=== PATIENT | male | born 1950 | race Caucasian/White ===

== ENCOUNTER 2019-03-28 16:32 | Emergency (ER) | payer BC ==
[2019-03-28 17:14] VITALS: BP 160/64; PULSE 80; TEMP 97.5; BMI 30.9
--- NOTE | 2019-03-28 17:21 | PDOC ---
History of Present Illness - General Chief Complaint: Respiratory Stated Complaint: COUGH Time Seen by Provider: 03/28/19 16:36 - History of Present Illness Initial Comments: Yohannes Valdez is a 68yo man with a PMH of HTN, hypothyroidism, alcohol abuse (reports elevated LFT's due to drinking) who presents with multiple complaints for the past week. He states that he has had generalized weakness, excessive thirst, poor appetite, and fatigue over the past week. He says that he feels this started with a cold 1.5 weeks ago, as he had a cough. 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 Mr Valdez says he is afraid that he has low potassium as his brother has had this in the past. He denies any chest pain, SOB , vomiting, change in bowel habits, but he does endorse frequent nocturia recently. He made an appointment with his PMD but states that he felt he should get checked out sooner in case something was wrong. Past History - Past Medical History Allergies/Adverse Reactions: Allergies Allergy/AdvReac Type Severity Reaction Status Date / Time No Known Allergies Allergy Verified 03/28/19 16:53 Home Medications: Ambulatory Orders Levothyroxine PO DAILY 03/28/19 Lisinopril 30 mg PO DAILY 03/28/19 COPD: No HTN: Yes Liver Disease: Yes (ALCOHOL RELATED) - Suicide/Smoking/Psychosocial Hx Smoking History: Never smoked Hx Alcohol Use: Yes Drug/Substance Use Hx: No Review of Systems - Review of Systems Comments:: General: No fevers, no chills, no weight, + poor appetite, no malaise HEENT: No changes in vision, no changes in hearing, no congestion, no sore throat CV:No chest pain, no palpitations, no LE edema Pulm: No SOB, + occasional cough, no wheezing GI: No nausea or vomiting, no change in bowel habits, no melena : No frequency, no urgency, no dysuria, +nocturia Musc: No back pain, no joint swelling, no recent injury Skin: No rash, no lesions, no erythema Endo: + excessive thirst, no heat/cold intolerance Heme: No unusual bruising or bleeding, no swollen glands Neuro: No syncope, no numbness/tingling, no focal weakness Vasc: No claudication Psych: No recent change in mood, no SI or HI *Physical Exam - Vital Signs Last Vital Signs Temp Pulse Resp BP Pulse Ox 97.5 F L 80 16 160/64 98 03/28/19 16:34 03/28/19 16:34 03/28/19 16:34 03/28/19 16:34 03/28/19 16:34 - Physical Exam Comments: General: Comfortable, no acute distress HEENT: PERRL, EOMI, MMM, voice normal, normal neck ROM Cards: RRR, no murmur appreciated Pulm: Comfortable on room air, clear to auscultation bilaterally Abd: Soft, nontender, nondistended : No CVA tenderness Ext: Atraumatic. No LE edema. ROM intact. WWP Skin: Normal color, no rashes or lesions Neuro: A&Ox3, CN grossly intact, normal speech, motor/sensory grossly intact and symmetric Psych: Mood appropriate to situation ED Treatment Course - LABORATORY CBC & Chemistry Diagram: 03/28/19 17:50 03/28/19 17:50 Medical Decision Making - Medical Decision Making 03/28/19 17:21 Yohannes Valdez is a 68yo man with a PMH of HTN, hypothyroidism, alcohol abuse (reports elevated LFT's due to drinking) who presents with multiple complaints for the past week including generalized weakness, excessive thirst, poor appetite, and fatigue over the past week. - Weakness, dehydration could be secondary to alcoholism, undiagnosed diabetes, electrolyte deficiency - CBC, CMP, mag, phos, UA, UCx, EKG, CXR 03/28/19 18:22 - Pt endorsed nausea/vomiting to Dr Gracia. Lipase ordered. - Labs reviewed. Chemistry notable for sodium 128, mag 1.5 - Plan to admit for electrolyte abnormalities, likely secondary to alcohol abuse 03/28/19 18:56 - IV placed for 2l NS and IV mag - Discussed admission w/ pt. He states that he cannot stay overnight. Advised him to consider staying - Will recheck chemistry following electrolyte repletion. - To be signed out to overnight team for remainder of ED care. Discussed with Dr Gracia. Patricia Chiu PGY2 *DC/Admit/Observation/Transfer Diagnosis at time of Disposition: Hyponatremia, Hypomagnesemia - Discharge Dispostion Condition at time of disposition: Good - Referrals Referrals: Elizabeth Montaño [Non Staff, Medical] - - Patient Instructions Printed Discharge Instructions: Alcohol Use Disorder, DI for Hyponatremia Additional Instructions: you need to cut back you alcohol use. your sodium is low today at 128. this is likley related to your heavy alcohol use however can not know for sure without further testing. understand you are leaving against. medical advice. you should take magnesium 800 mg twice daily for 2 days. you should also follow up with you primary doctor call to schedule. return for any worsening nausea, vomiting confusion headache or any concerns. if you would like treatment for your alcohol use disorder you can seek detox at [facility]. - Post Discharge Activity
--- NOTE | 2019-03-28 18:04 | PDOC ---
Attending Attestation - Resident Resident Name: Patricia Chiu - ED Attending Attestation I have performed the following: I have examined & evaluated the patient, The case was reviewed & discussed with the resident, I agree w/resident's findings & plan, Exceptions are as noted - HPI HPI: 03/28/19 18:02 68 yo M with no pmhx here with co fatigue, and frequent urination. no ho dm no dysuria. no f/c no cp no sob. no other complaints. was concerned because a family member has low potassium so he wanted to get his potassium checked. no other complaints. does report daliy etoh use has two drinks at lunch and then 5 whiskeys each evening. has been told his liver test were elevated in the past. had two episodes of vomiting 3 days ago. no appetitis, and constant nausea. no abd pain. 03/28/19 18:45 - Physicial Exam PE: 03/28/19 18:03 awake alert lungs ctab heart rrr no mrg abd soft nt nd extwwp nuero alert oiented x 3 5/5 all four ext - Medical Decision Making 03/28/19 18:04 68 yo male h/o abnormal lft, heavy alcohol use ( 5 - 6 drink daily ) here with co polyuria polydypsia, nausea, and cough uri sxs. differential dehydration diabetes.hyponatremia, hypokalemia. uti, plan labs ua ekg . lipase pt educated regarding need to cut back alcohol use. 03/28/19 18:19 03/28/19 18:47 pt with hyponatremia, sxs likley related to etoh use. will hydrate with normal saline. admit. will attemp to contact dr mullins. number [phone]. [facility] doctor is no longer with practice. do not have the new number . 03/28/19 18:56 pt refusing to be admitted to hospital is agreaable to iv hydration and magnesium. will dc ama. aware of risk of hyponatremia including confusion, seizures and worsening condition. signed out to incoming attenindg pending iv hydration and magnesium repletion. to be dc ama. Heart Score/ECG Review #1 General ECG Interpretation: Sinus Rhythm, Normal Rate
[2019-03-28 18:33] LABS: ALBUMIN 2.8 g/dl (3.4-5.0); BILIRUBIN,TOTAL 7.6 mg/dl (0.2-1); CALCIUM 8.2 mg/dl (8.5-10); CREATININE 0.6 mg/dl (0.55-1.3); MAGNESIUM 1.5 mg/dL (1.8-2.4); POTASSIUM 3.9 mmol/L (3.5-5.1); TOT PROT 7.3 g/dl (6.4-8.2)
[2019-03-28] MEDS ORDERED: SODIUM CHLORIDE 0.9% 1000 ML INFUS.BAG IV ONE (18:42)
[2019-03-28 18:49] LABS: BASO % 0.5 % (0-2.0); EOS % 1.6 % (0-4.5); HEMATOCRIT 34.7 % (35.4-49); HEMOGLOBIN 11.9 GM/dl (11.7-16.9); LYMPH % 18.6 % (8-40); MCHC 34.5 g/dl (32.0-35.9); MEAN CELL VOLUME 110.2 fl (80-96); MEAN PLT VOLUME 10.1 fl (7.5-11.1); MONO % 11.9 % (3.8-10.2); NEUT % 67.4 % (42.8-82.8); PLATELET COUNT 71 K/MM3 (134-434); RBC 3.15 M/mm3 (4.00-5.60); RDW 14.5 % (11.9-15.9); WHITE BLOOD COUNT 6.2 K/mm3 (4.0-10.8)
[2019-03-28 18:50] LABS: ADD RBC MORPHOLOGY YES
[2019-03-28] MEDS ORDERED: MAGNESIUM SULF 50% (8.12 MEQ/2 ML-1 GM VIAL) ONE (19:09)
[2019-03-28 21:00] LABS: MACROCYTOSIS 2+; PLATELET ESTIMATE DECREASED
--- NOTE | 2019-03-29 09:38 | EKG ---
Test Reason : Blood Pressure : / mmHG Vent. Rate : 082 BPM Atrial Rate : 082 BPM P-R Int : 156 ms QRS Dur : 070 ms QT Int : 398 ms P-R-T Axes : 073 -06 046 degrees QTc Int : 464 ms NORMAL SINUS RHYTHM POSSIBLE LEFT ATRIAL ENLARGEMENT NONSPECIFIC ST ABNORMALITY ABNORMAL ECG NO PREVIOUS ECGS AVAILABLE Confirmed by Chico Alegria MD ([id number]) on 03/29/2019 9:38:26 AM Referred By: TIM YOON Confirmed By:Chico Alegria MD
== END 2019-03-28 20:06 | disposition left against medical advice (07) ==
LOC: FER 16:32
PROC: 3E033GC Introduction of Other Therapeutic Substance into Peripheral Vein, Percutaneous Approach (ICD-10-PCS; principal; 2019-03-28)
PROC: 3E0337Z Introduction of Electrolytic and Water Balance Substance into Peripheral Vein, Percutaneous Approach (ICD-10-PCS; 2019-03-28)
DX: E87.1 Hypo-osmolality and hyponatremia (principal); E83.42 Hypomagnesemia; I10 Essential (primary) hypertension; R63.0 Anorexia
CPT/HCPCS: 36415; 71046-TC-FY; 80053; 81003; 81015; 83690; 83735; 85025; 93005; 99283-25; J7030

== ENCOUNTER 2019-03-29 14:11 | Inpatient (IN) | payer BC, OTHER ==
--- NOTE | 2019-03-29 14:12 | PDOC ---
History of Present Illness - General Chief Complaint: Revisit, Lab Variance Stated Complaint: LOW NA Time Seen by Provider: 03/29/19 14:12 History Source: Patient Exam Limitations: No Limitations - History of Present Illness Initial Comments: 68 year old male with PMH HTN, HLD, ETOH abuse, hypothyroidism sent to ED by PCP for evaluation of hyponatremia. Pt reported he was seen at [facility] yesterday for generalized weakness, was diagnosed with low sodium and low magnesium, treated via IV, had improvement of his symptoms, then signed out AMA prior to admission. Pt reported he spoke with his PCP who advised he return to ED to be admitted to the hospital. Pt admitted to dry mouth. Pt stated he drinks 1 beer at 1500 daily, then 1/2 glass of wine with dinner, then 3 beers at night daily. Past History - Past Medical History Allergies/Adverse Reactions: Allergies Allergy/AdvReac Type Severity Reaction Status Date / Time No Known Allergies Allergy Verified 03/29/19 14:12 Home Medications: Ambulatory Orders Levothyroxine 100 mcg PO DAILY 03/28/19 Lisinopril 30 mg PO DAILY 03/28/19 COPD: No HTN: Yes Liver Disease: Yes (ALCOHOL RELATED) - Suicide/Smoking/Psychosocial Hx Smoking History: Never smoked Hx Alcohol Use: Yes Drug/Substance Use Hx: No Review of Systems - Review of Systems Able to Perform ROS?: Yes Comments:: General: denied fever, chills, generalized weakness. HEENT: admitted to dry mouth. denied sore throat, rhinorrhea, ear pain. Cardiovascular: denied chest pain, palpitations, syncope, diaphoresis. Respiratory: denied shortness of breath, cough, sputum production, hemoptysis. Gastrointestinal: denied abdominal pain, nausea, vomiting, diarrhea, constipation, blood in stool. Genitourinary: denied dysuria, increased urinary frequency, hematuria, urinary incontinence, flank pain. Back: denied back pain. Musculoskeletal: denied joint pain, muscle pain, joint swelling. Neurological: denied headache, dizziness, numbness, tingling, weakness. Integumentary: denied rash, laceration, abrasion. Hematologic/Lymphatic: denied bruising or bleeding. *Physical Exam - Physical Exam Comments: Constitutional: Well-nourished, Well-developed, appearing stated age. HEENT: head is normocephalic, atraumatic. EOMI. PERRLA. scleral icterus. Neck: supple. Full ROM. Cardiovascular: regular heart rhythm. no murmurs. no pericardial friction rub. Respiratory: clear to auscultation bilaterally. no crackles, rhonchi or wheezing. no stridor. Gastrointestinal: soft, nontender. normal bowel sounds. no rebound, guarding. hepatomegaly. Extremities: peripheral pulses intact. no lower extremity edema. Neurological: CN 2-12 grossly intact. moves all four extremities. Psych: awake, alert, oriented x3. follows commands. answers questions appropriately. ED Treatment Course - LABORATORY CBC & Chemistry Diagram: 03/29/19 14:17 03/29/19 14:17 Medical Decision Making - Medical Decision Making 03/29/19 14:59 68 year old male with above PMH sent to ED by PCP for evaluation of hyponatremia. Pt was seen in [facility] ED yesterday for generalized weakness, Na 128 Mag 1.5, treated with IV fluids and IV magnesium. Initial Vital Signs Temp Pulse Resp BP Pulse Ox 98.2 F 93 H 19 167/66 99 03/29/19 14:11 03/29/19 14:11 03/29/19 14:11 03/29/19 14:11 03/29/19 14:11 Afebrile. No tachycarida. No tachypnea. Hypertension. No hypoxia on room air. Labs ordered: CBC, CMP, mag, direct bili Imaging ordered: none Medications ordered: normal saline 1000 bolus EKG performed at 1551: rate 84, regular rhythm, normal axis, QTc 463, flipped T in anterior/septal leads, flat T in aVL, otherwise no acute ST changes. 03/29/19 15:40 CBC WBC 7.8 K/mm3 (4.0-10.8) 03/29/19 14:17 RBC 3.05 M/mm3 (4.00-5.60) L 03/29/19 14:17 Hgb 12.0 GM/dl (11.7-16.9) 03/29/19 14:17 Hct 33.7 % (35.4-49) L 03/29/19 14:17 MCV 110.6 fl (80-96) H 03/29/19 14:17 MCH 39.3 pg (25.7-33.7) H 03/29/19 14:17 MCHC 35.5 g/dl (32.0-35.9) 03/29/19 14:17 RDW 14.8 % (11.9-15.9) 03/29/19 14:17 Plt Count 75 K/MM3 (134-434) L 03/29/19 14:17 MPV 9.7 fl (7.5-11.1) 03/29/19 14:17 Absolute Neuts (auto) 4.9 K/mm3 03/29/19 14:17 Neutrophils % No Result Required. 03/29/19 14:17 Neutrophils % (Manual) 62.0 % (42.8-82.8) 03/29/19 14:17 Band Neutrophils % 3.0 % (0-10) 03/29/19 14:17 Lymphocytes % No Result Required. 03/29/19 14:17 Lymphocytes % (Manual) 21.0 % (8-40) 03/29/19 14:17 Monocytes % (Manual) 11 % (3.8-10.2) H 03/29/19 14:17 Eosinophils % (Manual) 3.0 % (0-4.5) 03/29/19 14:17 Hypochromia Few 03/29/19 14:17 Platelet Estimate Decreased 03/29/19 14:17 Macrocytosis 2+ 03/29/19 14:17 Elevated MCV - consistent with ETOH abuse. No anemia. No leukocytosis. 03/29/19 16:00 CMP Sodium 129 mmol/L (136-145) L 03/29/19 14:17 Potassium 3.8 mmol/L (3.5-5.1) 03/29/19 14:17 Chloride 101 mmol/L (98-107) 03/29/19 14:17 Carbon Dioxide 23 mmol/L (21-32) 03/29/19 14:17 Anion Gap 5 MMOL/L (8-16) L 03/29/19 14:17 BUN 8.0 mg/dl (7-18) 03/29/19 14:17 Creatinine 0.7 mg/dl (0.55-1.3) 03/29/19 14:17 Est GFR (CKD-EPI)AfAm 112.38 03/29/19 14:17 Est GFR (CKD-EPI)NonAf 96.97 03/29/19 14:17 Random Glucose 178 mg/dl (74-106) H 03/29/19 14:17 Calcium 7.7 mg/dl (8.5-10) L 03/29/19 14:17 Magnesium 1.8 mg/dL (1.8-2.4) 03/29/19 14:17 Total Bilirubin 7.6 mg/dl (0.2-1) H 03/29/19 14:17 Direct Bilirubin 4.1 mg/dL (0.0-0.2) H 03/29/19 14:17 AST 105 U/L (15-37) H 03/29/19 14:17 ALT 30 U/L (13-61) 03/29/19 14:17 Alkaline Phosphatase 250 U/L (45-117) H D 03/29/19 14:17 Total Protein 6.9 g/dl (6.4-8.2) 03/29/19 14:17 Albumin 2.7 g/dl (3.4-5.0) L 03/29/19 14:17 Lipase 234 U/L (73-393) 03/29/19 14:17 Hyponatremia. No JACK. Elevated AST. Elevated total and direct bilirubin. Lipase wnl. Pt and daughter informed of results and need for admission for hyponatremia correction. RUQ US ordered. 03/29/19 16:18 RUQ US report: Name: [facility]OLOG[facility] Phys: Shalom Kennedy MD : 1950 Age: 68 Sex: M [employer] Acct: [id number] Loc: [address] Exam Date: 03/29/19 Status: [place] [address] Unit Number: [id number] EXAM #: TYPE/EXAM: RESULT: [id number] US/ABDOMEN US -LIMITED Right upper quadrant abdomen ultrasound Clinical information: elevated liver function studies No prior imaging studies are available at this facility for direct comparison. The liver demonstrates a diffusely heterogeneous echotexture which may be on the basis of fibrosis. No obvious mass lesion is seen. A small amount of perihepatic ascites is noted. There appears to be flow reversal within the main portal vein suggestive of increased portal venous pressure. Several dilated vessels are noted adjacent to the inferior border of the right hepatic lobe suggestive of varices. No obvious gallbladder calculus is seen. There is mild diffuse nonspecific gallbladder wall thickening. The common bile duct diameter appears unremarkable measuring 0.5 cm. There is equivocal prominence of the partially imaged pancreatic head and body. IMPRESSION: Findings are noted as discussed above suggestive of hepatic cirrhosis with associated portal hypertension. Follow-up imaging is suggested. There is no definite sonographic evidence of cholelithiasis. Note is made of mild diffuse nonspecific gallbladder wall thickening which may be secondary to hepatocellular disease versus acute cholecystitis in an appropriate clinical setting. If there is clinical concern for possible acute cholecystitis additional evaluation utilizing a radionuclide HIDA scan may be performed. There is no definite biliary tract dilatation. Possible mild prominence of the partially imaged pancreas is noted. Follow-up imaging is suggested preferably utilizing MRI/ MRCP. Reported By: Adan Yoon MD 03/29/[address] Kennedy spoke with the admitting team. Pt to be admitted. 03/29/19 17:13 Dr. Randolph, GI director of consulting services, paged. 03/29/19 17:29 Dr. Randolph advised managing the sodium in [facility], getting the MRCP , and if his clinical condition worsens he can be transferred. Dr. Kennedy updated the admitting team. *DC/Admit/Observation/Transfer Diagnosis at time of Disposition: Hyponatremia, Painless jaundice, Elevated bilirubin - Discharge Dispostion Condition at time of disposition: Stable Decision to Admit order: Yes - Referrals - Patient Instructions - Post Discharge Activity
[2019-03-29] MEDS ORDERED: SODIUM CHLORIDE 1,000 ML IV STA (14:13)
[2019-03-29 14:18] VITALS: BMI 30.9
[2019-03-29 14:39] LABS: HEMATOCRIT 33.7 % (35.4-49); MCH 39.3 pg (25.7-33.7); WHITE BLOOD COUNT 7.8 K/mm3 (4.0-10.8)
[2019-03-29 14:44] LABS: ADD RBC MORPHOLOGY YES; MCHC 35.5 g/dl (32.0-35.9); MEAN CELL VOLUME 110.6 fl (80-96); MEAN PLT VOLUME 9.7 fl (7.5-11.1); PLATELET COUNT 75 K/MM3 (134-434); RBC 3.05 M/mm3 (4.00-5.60); RDW 14.8 % (11.9-15.9)
[2019-03-29 14:53] LABS: ALBUMIN 2.7 g/dl (3.4-5.0); BILIRUBIN,DIRECT 4.1 mg/dL (0.0-0.2); BILIRUBIN,TOTAL 7.6 mg/dl (0.2-1); CALCIUM 7.7 mg/dl (8.5-10); CREATININE 0.7 mg/dl (0.55-1.3); MAGNESIUM 1.8 mg/dL (1.8-2.4); POTASSIUM 3.8 mmol/L (3.5-5.1); TOT PROT 6.9 g/dl (6.4-8.2)
[2019-03-29 15:05] LABS: MACROCYTOSIS 2+; PLATELET ESTIMATE DECREASED
[2019-03-29 15:19] LABS: INR 1.97 (0.82-1.09); PROTHROMBIN TIME (PATIENT) 21.8 SEC (10.2-13.0)
--- NOTE | 2019-03-29 15:22 | PDOC ---
Attending Attestation - Resident Resident Name: Alyson La - ED Attending Attestation I have performed the following: I have examined & evaluated the patient, The case was reviewed & discussed with the resident, I agree w/resident's findings & plan - HPI HPI: 03/29/19 15:19 68-year-old male with history of alcoholism recently seen in the ED for generalized weakness yesterday and signed out AGAINST MEDICAL ADVICE now prompted to return for further management by his PCP, Dr. MESSER, after results of hyponatremia were reported to him yesterday. On review of the prior record, patient was hyponatremic to 128 but he signed out against advice after being recommended admission. Notably, his LFTs are also elevated including his bilirubins. This was new to his PCP upon review of the results. - Physicial Exam PE: 03/29/19 15:20 Vital signs as noted Exam as noted Neurologically intact, conversant and oriented - Medical Decision Making 03/29/19 15:21 68-year-old male known alcohol abuse presented here with generalized weakness and found to have hyponatremia and hyperbilirubinemia. Concern for biliary obstructive process versus neoplastic process, hemodynamically stable here and neurologically intact. Repeat labs show persistent hypoglycemia of 129, persistent elevated bilirubin with direct bilirubin of 4 EKG, chest x-ray Abdominal ultrasound Admission 03/29/19 16:21 u/s with GB wall thickening without calculi, in absence of pain/tenderness not consistent with cholecystitis. ? pancreatic lesion requiring MR imaging. Discussed with symphony team, will admit for management of hypo-Na and further evaluation of biliary tract. Will involve GI pending findings. Heart Score/ECG Review #1 ECG reviewed & interpreted by me at: 15:51 General ECG Interpretation: Sinus Rhythm, Normal Rate (84), Normal Intervals ( qtc slighly prolonged at 463), No acute ischemic changes
--- NOTE | 2019-03-29 16:29 | HP ---
CHIEF COMPLAINT: Excessive thirst PCP: Cuca Robison HISTORY OF PRESENT ILLNESS: 68 year-old male with a PMH significant for HTN, hypothyroidism, alcohol abuse for many years, psoriasis, and gout. Patient presented to the [facility] on 03/28/19 with complaints of generalized weakness, excessive thirst, frequent urination, and poor appetite x 1 week. Patient was found to be hyponatremic and with elevated bilirubin. He was treated with IV fluids, electrolytes were repleted, but he signed out AMA before the workup was complete. Patient returned today at the urging of his PCP Dr. Montaño. He was again found to be hyponatremic, with elevated bilirubin, and elevated transaminases. ER course was notable for: (1) Total bili 7.6, Direct bili 4.1 (2) AST/ALT/Alk phos 105/30/250 (3) INR 1.97 (4) NS x 1 L Recent Travel: No PAST MEDICAL HISTORY: Hypertension Hypothyroidism Alcohol abuse Psoriasis Gout PAST SURGICAL HISTORY: Bilateral hip replacements 2003 Social History: lives in [place] with ; works at [employer] [place] with brother [place]okin years as a teenager Alcohol: daily; last time did not drink on a daily basis was in 2003 when he was in hospital for hip replacement; 5-6 drinks daily, whisky; last drink 03/28 ~ 10pm Drugs: denies Family History: mother alive with stomach problems; father 82 bladder cancer; 6 siblings, brother with thyroid cancer, sister with DM, sister with thyroid resection; 3 daughters a&w Allergies No Known Allergies Allergy (Verified 03/29/19 14:12) HOME MEDICATIONS: Home Medications Medication Instructions Recorded Levothyroxine 0 mcg PO DAILY 03/28/19 Lisinopril 30 mg PO DAILY 03/28/19 REVIEW OF SYSTEMS CONSTITUTIONAL: +weakness Absent: fever, chills, diaphoresis, generalized weakness, malaise, loss of appetite, weight change HEENT: Absent: rhinorrhea, nasal congestion, throat pain, throat swelling, difficulty swallowing, mouth swelling, ear pain, eye pain, visual changes CARDIOVASCULAR: Absent: chest pain, syncope, palpitations, irregular heart rate, lightheadedness , peripheral edema RESPIRATORY: Absent: cough, shortness of breath, dyspnea with exertion, orthopnea, wheezing, stridor, hemoptysis GASTROINTESTINAL: Absent: abdominal pain, abdominal distension, nausea, vomiting, diarrhea, constipation, melena, hematochezia GENITOURINARY: +dark urine in mornings Absent: dysuria, frequency, urgency, hesitancy, hematuria, flank pain, genital pain MUSCULOSKELETAL: Absent: myalgia, arthralgia, joint swelling, back pain, neck pain SKIN: Absent: rash, itching, pallor HEMATOLOGIC/IMMUNOLOGIC: Absent: easy bleeding, easy bruising, lymphadenopathy, frequent infections ENDOCRINE: +excessive thirst, frequent urination Absent: unexplained weight gain, unexplained weight loss, heat intolerance, cold intolerance NEUROLOGIC: Absent: headache, focal weakness or paresthesias, dizziness, unsteady gait, seizure, mental status changes, bladder or bowel incontinence PSYCHIATRIC: Absent: anxiety, depression, suicidal or homicidal ideation, hallucinations. PHYSICAL EXAMINATION Vital Signs - 24 hr 03/29/19 14:11 Temperature 98.2 F Pulse Rate 93 H Respiratory 19 Rate Blood Pressure 167/66 O2 Sat by Pulse 99 Oximetry (%) GENERAL/NEURO: Awake, alert, and fully oriented, in no acute distress. Mildly anxious, irritable. No tremors. No sweating. HEAD: Normal with no signs of trauma. EYES: Pupils equal, round and reactive to light, extraocular movements intact, sclera icteric, conjunctiva clear. No lid lag. EARS, NOSE, THROAT: Ears normal, nares patent, oropharynx clear without exudates. Dry mucous membranes. LUNGS: Breath sounds equal, clear to auscultation bilaterally. No wheezes, and no crackles. No accessory muscle use. HEART: Regular rate and rhythm, S1 and S2 ABDOMEN: Protuberant, tympanic, not tender, no guarding, no rebound tenderness MUSCULOSKELETAL: Normal range of motion at all joints. No bony deformities or tenderness. No CVA tenderness. UPPER EXTREMITIES: 2+ pulses, warm, well-perfused. No cyanosis. No clubbing. No peripheral edema. LOWER EXTREMITIES: 2+ pulses, warm, well-perfused. No calf tenderness. No peripheral edema. Erythematous lesions/dry scabs scattered both legs NEUROLOGICAL: Cranial nerves II-XII intact. Normal speech. SKIN: Jaundiced Laboratory Results - last 24 hr 03/29/19 03/29/19 03/29/19 14:17 14:17 14:17 WBC 7.8 RBC 3.05 L Hgb 12.0 Hct 33.7 L MCV 110.6 H MCH 39.3 H MCHC 35.5 RDW 14.8 Plt Count 75 L MPV 9.7 Absolute Neuts (auto) 4.9 Neutrophils % No Result Required. Neutrophils % (Manual) 62.0 Band Neutrophils % 3.0 Lymphocytes % No Result Required. Lymphocytes % (Manual) 21.0 Monocytes % (Manual) 11 H Eosinophils % (Manual) 3.0 Hypochromia Few Platelet Estimate Decreased Macrocytosis 2+ PT with INR INR PTT (Actin FS) Sodium 129 L Potassium 3.8 Chloride 101 Carbon Dioxide 23 Anion Gap 5 L BUN 8.0 Creatinine 0.7 Est GFR (CKD-EPI)AfAm 112.38 Est GFR (CKD-EPI)NonAf 96.97 Random Glucose 178 H Calcium 7.7 L Magnesium 1.8 Total Bilirubin 7.6 H Direct Bilirubin 4.1 H AST 105 H ALT 30 Alkaline Phosphatase 250 H D Total Protein 6.9 Albumin 2.7 L Lipase Alcohol, Quantitative < 3.0 03/29/19 03/29/19 03/29/19 14:17 15:00 15:00 WBC RBC Hgb Hct MCV MCH MCHC RDW Plt Count MPV Absolute Neuts (auto) Neutrophils % Neutrophils % (Manual) Band Neutrophils % Lymphocytes % Lymphocytes % (Manual) Monocytes % (Manual) Eosinophils % (Manual) Hypochromia Platelet Estimate Macrocytosis PT with INR 21.8 H INR 1.97 H PTT (Actin FS) 33.7 Sodium Potassium Chloride Carbon Dioxide Anion Gap BUN Creatinine Est GFR (CKD-EPI)AfAm Est GFR (CKD-EPI)NonAf Random Glucose Calcium Magnesium Total Bilirubin Direct Bilirubin AST ALT Alkaline Phosphatase Total Protein Albumin Lipase 234 Alcohol, Quantitative ASSESSMENT/PLAN: 68 year-old male with a PMH significant for HTN, hypothyroidism, alcohol abuse. Admitted for hyponatremia, acute alcohol withdrawal, elevated bilirubin. Alcohol Dependency Acute alcohol withdrawal --mildly anxious, irritable --ativan protocol --multivitamin bag; daily thiamine, folic acid --hydroxyzine PRN for anxiety --Pepto Bismol PRN for diarrhea --continuous cardiac monitoring Hyponatremia --Na 129 --NS x 1L in ED --gentle IV fluids --repeat bmp in am Hepatic cirrhosis Portal hypertension Hyperbilirubinemia Elevated transaminases Ascites Varices --jaundiced appearance, icteric sclera, no abdominal pain --03/29 US: hepatic cirrhosis with associated portal hypertension; mild diffuse nonspecific gallbladder wall thickening with no cholelithiasis; no definite biliary tract dilitation; possible mild prominence of pancreas; varices ; periheaptic ascites --Child-White Class C; MELD-Na score 27 --MRCP in am Elevated ammonia --presently alert and oriented, no signs of encephalopathy --defer lactulose Hypertension --stop home lisinopril; ACEI/ARB contraindicated in patients with cirrhosis and ascites --start nadolol 40mg daily Hypothyroidism --need to verify home dose synthroid Psoriasis --stable Gout --stable, last flare 3-4 months ago; takes colchicine PRN FEN Fluids: Multi-vitamin bag x 1L; then NS @ 50mL/hr Electrolytes: replete as indicated; K>4, Mg>2 Nutrition: low sodium DVT prophylaxis: defer chemical prophylaxis due to possible surgical intervention; SCDs Dispo: continues to require inpatient care. Visit type - Emergency Visit Emergency Visit: Yes ED Registration Date: 03/29/19 Care time: The patient presented to the Emergency Department on the above date and was hospitalized for further evaluation of their emergent condition. - New Patient This patient is new to me today: Yes Date on this admission: 03/29/19 - Critical Care Critical Care patient: No
[2019-03-29] MEDS ORDERED: SODIUM CHLORIDE 1,000 ML IV SCH (18:15)
[2019-03-29] MEDS ORDERED: MELATONIN 5 MG TABLETS PO PRN (19:23)
[2019-03-29] MEDS ORDERED: BISMUTH SUBSALICYLATE 524 MG/30 ML UD PO PRN (19:23)
[2019-03-29] MEDS ORDERED: MENTHOL/PHENOL 1 EACH UD MM PRN (19:23)
[2019-03-29] MEDS ORDERED: ONDANSETRON *ODT* 4 MG TABLET SL PRN (19:23)
[2019-03-29] MEDS ORDERED: hydrOXYzine HCL 25 MG TABLET (FP) PO PRN (19:23)
[2019-03-29] MEDS ORDERED: LORazepam 0.5 MG TABLET PO PRN (19:45)
[2019-03-29] MEDS ORDERED: POTASSIUM CHLORIDE TABS 20 MEQ TABLET.ER (FP) PO ONE (20:29)
[2019-03-29] MEDS ORDERED: NADOLOL 40 MG TABLET (FP) PO SCH (21:00)
[2019-03-29] MEDS ORDERED: FOLIC ACID INJECTION - 1 MG, THIAMINE HCL 100 MG, MULTIVIT INJECTION ADULT 10 ML in SOD... IVPB ONE (21:30)
[2019-03-29] MEDS: PANTOPRAZOLE 40 MG TABLET (FP) PO SCH (21:34)
[2019-03-29] MEDS: LORazepam 0.5 MG TABLET PO SCH (22:19)
[2019-03-30] MEDS: LORazepam 0.5 MG TABLET PO SCH ×4 (06:09→22:17)
[2019-03-30 07:00] LABS: BASO % 0.9 % (0-2.0); EOS % 5.4 % (0-4.5); HEMATOCRIT 32.7 % (35.4-49); HEMOGLOBIN 11.5 GM/dl (11.7-16.9); LYMPH % 25.5 % (8-40); MCH 38.7 pg (25.7-33.7); MCHC 35.2 g/dl (32.0-35.9); MEAN PLT VOLUME 9.1 fl (7.5-11.1); MONO % 11.4 % (3.8-10.2); NEUT % 56.8 % (42.8-82.8); PLATELET COUNT 57 K/MM3 (134-434); RBC 2.97 M/mm3 (4.00-5.60); RDW 14.6 % (11.9-15.9); WHITE BLOOD COUNT 5.1 K/mm3 (4.0-10.8)
[2019-03-30 07:23] LABS: CALCIUM 7.9 mg/dl (8.5-10); CREATININE 0.7 mg/dl (0.55-1.3); MAGNESIUM 1.8 mg/dL (1.8-2.4); PHOSPHOROUS 2.9 mg/dl (2.5-4.9); POTASSIUM 4.1 mmol/L (3.5-5.1)
[2019-03-30] MEDS ORDERED: MAGNESIUM SULF 50% (8.12 MEQ/2 ML-1 GM VIAL) IVPB ONE (08:07)
--- NOTE | 2019-03-30 09:14 | PN ---
Physical Exam: SUBJECTIVE: Patient seen and examined at bedside. Observed ambulating to bathroom independently. Feels ativan is helping, denies feeling anxious, irritable, no diarrhea, no sweats, no palpitations. OBJECTIVE: Vital Signs Period Temp Pulse Resp BP Sys/Scott Pulse Ox Last 24 Hr 97.6 F-98.2 F 76-93 18-19 128-167/51-66 97-100 GENERAL/NEURO: The patient is awake, alert, and fully oriented, in no acute distress. Cranial nerves II through XII grossly intact. Normal speech, steady gait. No tremors. No asterixis. HEENT: icteric sclera LUNGS: Breath sounds equal, clear to auscultation HEART: Regular rate and rhythm, S1, S2 without murmur, rub or gallop. ABDOMEN: Protuberant, tympanic, not tender, no guarding, no rebound tenderness EXTREMITIES: 2+ pulses, warm, well-perfused, no edema. NEUROLOGICAL: PSYCH: Normal mood, normal affect. SKIN: Jaundiced, warm, dry Laboratory Results - last 24 hr 03/29/19 03/29/19 03/29/19 14:17 14:17 14:17 WBC 7.8 RBC 3.05 L Hgb 12.0 Hct 33.7 L MCV 110.6 H MCH 39.3 H MCHC 35.5 RDW 14.8 Plt Count 75 L MPV 9.7 Absolute Neuts (auto) 4.9 Neutrophils % No Result Required. Neutrophils % (Manual) 62.0 Band Neutrophils % 3.0 Lymphocytes % No Result Required. Lymphocytes % (Manual) 21.0 Monocytes % Monocytes % (Manual) 11 H Eosinophils % Eosinophils % (Manual) 3.0 Basophils % Hypochromia Few Platelet Estimate Decreased Macrocytosis 2+ PT with INR INR PTT (Actin FS) Sodium 129 L Potassium 3.8 Chloride 101 Carbon Dioxide 23 Anion Gap 5 L BUN 8.0 Creatinine 0.7 Est GFR (CKD-EPI)AfAm 112.38 Est GFR (CKD-EPI)NonAf 96.97 Random Glucose 178 H Hemoglobin A1c % Serum Osmolality 279 Calcium 7.7 L Phosphorus Magnesium 1.8 Total Bilirubin 7.6 H Direct Bilirubin 4.1 H AST 105 H ALT 30 Alkaline Phosphatase 250 H D Ammonia Total Protein 6.9 Albumin 2.7 L Lipase Alcohol, Quantitative Blood Type Antibody Screen 0803/29/19 03/29/19 14:17 14:17 14:17 WBC RBC Hgb Hct MCV MCH MCHC RDW Plt Count MPV Absolute Neuts (auto) Neutrophils % Neutrophils % (Manual) Band Neutrophils % Lymphocytes % Lymphocytes % (Manual) Monocytes % Monocytes % (Manual) Eosinophils % Eosinophils % (Manual) Basophils % Hypochromia Platelet Estimate Macrocytosis PT with INR INR PTT (Actin FS) Sodium Potassium Chloride Carbon Dioxide Anion Gap BUN Creatinine Est GFR (CKD-EPI)AfAm Est GFR (CKD-EPI)NonAf Random Glucose Hemoglobin A1c % 4.6 Serum Osmolality Calcium Phosphorus Magnesium Total Bilirubin Direct Bilirubin AST ALT Alkaline Phosphatase Ammonia Total Protein Albumin Lipase 234 Alcohol, Quantitative < 3.0 Blood Type Antibody Screen 03/29/19 03/29/19 03/29/19 15:00 15:00 18:29 WBC RBC Hgb Hct MCV MCH MCHC RDW Plt Count MPV Absolute Neuts (auto) Neutrophils % Neutrophils % (Manual) Band Neutrophils % Lymphocytes % Lymphocytes % (Manual) Monocytes % Monocytes % (Manual) Eosinophils % Eosinophils % (Manual) Basophils % Hypochromia Platelet Estimate Macrocytosis PT with INR 21.8 H INR 1.97 H PTT (Actin FS) 33.7 Sodium Potassium Chloride Carbon Dioxide Anion Gap BUN Creatinine Est GFR (CKD-EPI)AfAm Est GFR (CKD-EPI)NonAf Random Glucose Hemoglobin A1c % Serum Osmolality Calcium Phosphorus Magnesium Total Bilirubin Direct Bilirubin AST ALT Alkaline Phosphatase Ammonia 51.70 H Total Protein Albumin Lipase Alcohol, Quantitative Blood Type Antibody Screen 03/29/19 03/29/19 03/30/19 18:29 18:29 06:53 WBC 5.1 RBC 2.97 L Hgb 11.5 L Hct 32.7 L MCV 110.0 H MCH 38.7 H MCHC 35.2 RDW 14.6 Plt Count 57 L D MPV 9.1 Absolute Neuts (auto) 2.9 Neutrophils % 56.8 Neutrophils % (Manual) Band Neutrophils % Lymphocytes % 25.5 D Lymphocytes % (Manual) Monocytes % 11.4 H Monocytes % (Manual) Eosinophils % 5.4 H D Eosinophils % (Manual) Basophils % 0.9 Hypochromia Platelet Estimate Macrocytosis PT with INR INR PTT (Actin FS) Sodium Potassium Chloride Carbon Dioxide Anion Gap BUN Creatinine Est GFR (CKD-EPI)AfAm Est GFR (CKD-EPI)NonAf Random Glucose Hemoglobin A1c % Serum Osmolality Calcium Phosphorus Magnesium Total Bilirubin Direct Bilirubin AST ALT Alkaline Phosphatase Ammonia Total Protein Albumin Lipase Alcohol, Quantitative Blood Type B POSITIVE B POSITIVE Antibody Screen Negative 03/30/19 06:53 WBC RBC Hgb Hct MCV MCH MCHC RDW Plt Count MPV Absolute Neuts (auto) Neutrophils % Neutrophils % (Manual) Band Neutrophils % Lymphocytes % Lymphocytes % (Manual) Monocytes % Monocytes % (Manual) Eosinophils % Eosinophils % (Manual) Basophils % Hypochromia Platelet Estimate Macrocytosis PT with INR INR PTT (Actin FS) Sodium 133 L Potassium 4.1 Chloride 105 Carbon Dioxide 22 Anion Gap 6 L BUN 9.0 Creatinine 0.7 Est GFR (CKD-EPI)AfAm 112.38 Est GFR (CKD-EPI)NonAf 96.97 Random Glucose 107 H Hemoglobin A1c % Serum Osmolality Calcium 7.9 L Phosphorus 2.9 Magnesium 1.8 Total Bilirubin Direct Bilirubin AST ALT Alkaline Phosphatase Ammonia Total Protein Albumin Lipase Alcohol, Quantitative Blood Type Antibody Screen Active Medications Generic Name Dose Route Start Last Admin Trade Name Freq PRN Reason Stop Dose Admin Bismuth Subsalicylate 524 mg 03/29/19 19:23 Pepto-Bismol - PO Q1H PRN DIARRHEA Eucalyptus/Menthol/Phenol/Sorbitol 1 each 03/29/19 19:23 Cepastat Lozenge - MM 04/04/19 19:27 Q4H PRN SORE THROAT Hydroxyzine HCl 25 mg 03/29/19 19:23 Atarax - PO 04/04/19 19:27 Q6H PRN For Anxiety Sodium Chloride 1,000 mls @ 50 mls/hr 03/29/19 18:15 03/29/19 21:35 Normal Saline - IV 03/30/19 18:06 50 mls/hr ASDIR LIVIA Administration Lorazepam 2 mg 03/29/19 23:00 03/30/19 06:09 Ativan - PO 03/30/19 23:01 2 mg Q6H LIVIA Administration Lorazepam 0.5 mg 04/01/19 05:00 Ativan - PO 04/01/19 23:01 Q6H LIVIA Lorazepam 0.5 mg 04/01/19 00:00 Ativan - PO 04/02/19 00:00 Q4H PRN Symptoms of Withdrawal Lorazepam 0.5 mg 04/02/19 05:00 Ativan - PO 04/02/19 05:01 ONCE ONE Lorazepam 1 mg 03/31/19 05:00 Ativan - PO 03/31/19 23:01 Q6H LIVIA Lorazepam 1 mg 03/29/19 19:45 Ativan - PO 03/31/19 23:59 Q4H PRN Symptoms of Withdrawal Melatonin 5 mg 03/29/19 19:23 03/29/19 23:45 Melatonin PO 5 mg HS PRN Administration INSOMNIA Nadolol 40 mg 03/29/19 21:03 Corgard - PO DAILY [facility] Ondansetron HCl 4 mg 03/29/19 19:23 Zofran Odt - SL 04/04/19 19:29 Q12H PRN Nausea/Vomiting Pantoprazole Sodium 40 mg 03/29/19 22:00 03/29/19 21:34 Protonix - PO 40 mg BID LIVIA Administration Multivit/Folic Acid/Iron 1 tab 03/30/19 10:00 Vitamins (Sjr) - PO DAILY [facility] Thiamine HCl 100 mg 03/30/19 22:00 Vitamin B1 - PO HS [facility] ASSESSMENT/PLAN 68 year-old male with a PMH significant for HTN, hypothyroidism, alcohol abuse. Admitted for hyponatremia, acute alcohol withdrawal, elevated bilirubin. Alcohol Dependency Acute alcohol withdrawal --progressing well with ativan protocol --continue thiamine, folic acid --continuous cardiac monitoring Hyponatremia --improving Na 133 (<--129) --continue gentle IV fluids Hepatic cirrhosis Portal hypertension Hyperbilirubinemia Elevated transaminases Ascites Varices --03/29 US: hepatic cirrhosis with associated portal hypertension; mild diffuse nonspecific gallbladder wall thickening with no cholelithiasis; no definite biliary tract dilitation; possible mild prominence of pancreas; varices ; periheaptic ascites --jaundiced appearance, icteric sclera, no abdominal pain --bilirubin trending up 8.4 (<--7.6) --Child-White Class C; MELD-Na score 27 --MRCP pending Elevated ammonia --presently alert and oriented, no signs of encephalopathy --having regular bowel movements --defer lactulose Hypertension --stop home lisinopril; ACEI/ARB contraindicated in patients with cirrhosis and ascites --BP is stable, continue nadolol Hypothyroidism --verified home dose, continue --TSH ordered Psoriasis --stable Gout --stable, last flare 3-4 months ago; takes colchicine PRN FEN Fluids: NS @ 50mL/hr Electrolytes: replete as indicated; K>4, Mg>2 Nutrition: low sodium DVT prophylaxis: defer chemical prophylaxis due to possible surgical intervention; SCDs Dispo: continues to require inpatient care. Visit type - Emergency Visit Emergency Visit: Yes ED Registration Date: 03/29/19 Care time: The patient presented to the Emergency Department on the above date and was hospitalized for further evaluation of their emergent condition. - New Patient This patient is new to me today: No - Critical Care Critical Care patient: No
[2019-03-30 09:25] LABS: ALBUMIN 2.4 g/dl (3.4-5.0); BILIRUBIN,TOTAL 8.4 mg/dl (0.2-1); TOT PROT 6.4 g/dl (6.4-8.2)
[2019-03-30] MEDS ORDERED: PT OWN MED DRAWER 7, Y5N ONE (09:47)
[2019-03-30] MEDS: NADOLOL 20 MG TABLET (FP) PO SCH (09:49)
[2019-03-30] MEDS: PANTOPRAZOLE 40 MG TABLET (FP) PO SCH ×2 (09:49→22:17)
[2019-03-30] MEDS: PRENATAL VITAMINS W/ FOLIC ACID TABLET (FP) PO SCH (09:49)
[2019-03-30] MEDS ORDERED: LEVOTHYROXINE PO SCH (10:00)
[2019-03-30] MEDS ORDERED: PATIENT'S OWN MEDICATION (NON-FORMULARY) (Lisinopril [Lisinopril] 30 MG) PO SCH (10:00)
[2019-03-30] MEDS ORDERED: LISINOPRIL 10 MG TABLET (FP) PO SCH (10:00)
[2019-03-30] MEDS: LEVOTHYROXINE NA 100 MCG TABLET (FP) PO SCH (10:54)
--- NOTE | 2019-03-30 10:56 | EKG ---
Test Reason : Blood Pressure : / mmHG Vent. Rate : 084 BPM Atrial Rate : 084 BPM P-R Int : 154 ms QRS Dur : 070 ms QT Int : 392 ms P-R-T Axes : 077 -03 062 degrees QTc Int : 463 ms NORMAL SINUS RHYTHM POSSIBLE LEFT ATRIAL ENLARGEMENT NONSPECIFIC T WAVE ABNORMALITY PROLONGED QT ABNORMAL ECG WHEN COMPARED WITH ECG OF 28-MAR-2019 18:29, NO SIGNIFICANT CHANGE WAS FOUND Confirmed by MICHELLE MARIE, STACEY ([id number]) on 03/30/2019 10:56:00 AM Referred By: DR SOTO Confirmed By:STACEY MARTINEZ MD
[2019-03-30] MEDS ORDERED: THIAMINE HCL 100 MG TABLET (FP) PO SCH (22:00)
[2019-03-31] MEDS: LEVOTHYROXINE NA 100 MCG TABLET (FP) PO SCH (06:31)
[2019-03-31] MEDS: LORazepam 0.5 MG TABLET PO SCH ×2 (06:31→10:07)
[2019-03-31 07:57] LABS: BASO % 0.3 % (0-2.0); EOS % 5.8 % (0-4.5); HEMATOCRIT 33.7 % (35.4-49); LYMPH % 30.4 % (8-40); MCH 39.2 pg (25.7-33.7); MCHC 35.6 g/dl (32.0-35.9); MEAN CELL VOLUME 110.3 fl (80-96); MONO % 10.6 % (3.8-10.2); NEUT % 52.9 % (42.8-82.8); PLATELET COUNT 68 K/MM3 (134-434); RBC 3.05 M/mm3 (4.00-5.60); RDW 14.5 % (11.9-15.9); WHITE BLOOD COUNT 6.1 K/mm3 (4.0-10.8)
[2019-03-31 08:01] LABS: ALBUMIN 2.2 g/dl (3.4-5.0); BILIRUBIN,TOTAL 7.6 mg/dl (0.2-1); CREATININE 0.7 mg/dl (0.55-1.3); MAGNESIUM 1.7 mg/dL (1.8-2.4); POTASSIUM 4.1 mmol/L (3.5-5.1); TOT PROT 6.3 g/dl (6.4-8.2)
--- NOTE | 2019-03-31 09:01 | PN ---
Physical Exam: SUBJECTIVE: Patient seen and examined. Brother and daughter present. Expresses desire to go home, not to stay in the hospital. OBJECTIVE: Vital Signs Period Temp Pulse Resp BP Sys/Scott Pulse Ox Last 24 Hr 97.6 F-98.5 F 62-71 18-18 114-135/53-56 94-98 GENERAL: The patient is awake, alert, and oriented. Sleepy, eyes close when not speaking, easily arousable. HEENT: icteric sclera, jaundice under tongue LUNGS: Breath sounds equal, clear to auscultation HEART: Regular rate and rhythm, S1, S2 ABDOMEN: Protuberant, tympanic, not tender EXTREMITIES: 2+ pulses, warm, well-perfused, no edema. NEUROLOGICAL: Cranial nerves II through XII grossly intact. Normal speech, gait not observed. No tremors, no asterixis PSYCH: Normal mood, normal affect. SKIN: Warm, dry, jaundiced Laboratory Results - last 24 hr 03/30/19 03/30/19 03/31/19 06:50 09:08 07:12 WBC 6.1 RBC 3.05 L Hgb 12.0 Hct 33.7 L MCV 110.3 H MCH 39.2 H MCHC 35.6 RDW 14.5 Plt Count 68 L MPV 10.0 Absolute Neuts (auto) 3.3 Neutrophils % 52.9 Lymphocytes % 30.4 Monocytes % 10.6 H Eosinophils % 5.8 H Basophils % 0.3 Sodium Potassium Chloride Carbon Dioxide Anion Gap BUN Creatinine Est GFR (CKD-EPI)AfAm Est GFR (CKD-EPI)NonAf Random Glucose Calcium Magnesium Total Bilirubin 8.4 H Direct Bilirubin 4.0 H AST 90 H ALT 27 Alkaline Phosphatase 214 H D Total Protein 6.4 Albumin 2.4 L TSH 6.41 H 03/31/19 07:12 WBC RBC Hgb Hct MCV MCH MCHC RDW Plt Count MPV Absolute Neuts (auto) Neutrophils % Lymphocytes % Monocytes % Eosinophils % Basophils % Sodium 131 L Potassium 4.1 Chloride 103 Carbon Dioxide 22 Anion Gap 6 L BUN 11.0 Creatinine 0.7 Est GFR (CKD-EPI)AfAm 112.38 Est GFR (CKD-EPI)NonAf 96.97 Random Glucose 98 Calcium 8.0 L Magnesium 1.7 L Total Bilirubin 7.6 H Direct Bilirubin AST 83 H ALT 26 Alkaline Phosphatase 221 H Total Protein 6.3 L Albumin 2.2 L TSH Active Medications Generic Name Dose Route Start Last Admin Trade Name Freq PRN Reason Stop Dose Admin Bismuth Subsalicylate 524 mg 03/29/19 19:23 Pepto-Bismol - PO Q1H PRN DIARRHEA Eucalyptus/Menthol/Phenol/Sorbitol 1 each 03/29/19 19:23 03/30/19 09:49 Cepastat Lozenge - MM 04/04/19 19:27 1 each Q4H PRN Administration SORE THROAT Hydroxyzine HCl 25 mg 03/29/19 19:23 Atarax - PO 04/04/19 19:27 Q6H PRN For Anxiety Levothyroxine Sodium 100 mcg 03/30/19 10:45 03/31/19 06:31 Synthroid - PO 100 mcg DAILY@0700 LIVIA Administration Lorazepam 0.5 mg 04/01/19 05:00 Ativan - PO 04/01/19 23:01 Q6H LIVIA Lorazepam 0.5 mg 04/01/19 00:00 Ativan - PO 04/02/19 00:00 Q4H PRN Symptoms of Withdrawal Lorazepam 0.5 mg 04/02/19 05:00 Ativan - PO 04/02/19 05:01 ONCE ONE Lorazepam 1 mg 03/31/19 05:00 03/31/19 06:31 Ativan - PO 03/31/19 23:01 1 mg Q6H LIVIA Administration Lorazepam 1 mg 03/29/19 19:45 Ativan - PO 03/31/19 23:59 Q4H PRN Symptoms of Withdrawal Melatonin 5 mg 03/29/19 19:23 03/29/19 23:45 Melatonin PO 5 mg HS PRN Administration INSOMNIA Nadolol 40 mg 03/29/19 21:03 03/30/19 09:49 Corgard - PO 40 mg DAILY LIVIA Administration Ondansetron HCl 4 mg 03/29/19 19:23 Zofran Odt - SL 04/04/19 19:29 Q12H PRN Nausea/Vomiting Pantoprazole Sodium 40 mg 03/29/19 22:00 03/30/19 22:17 Protonix - PO 40 mg BID LIVIA Administration Multivit/Folic Acid/Iron 1 tab 03/30/19 10:00 08/28/19 09:49 Vitamins (Sjr) - PO 1 tab DAILY LIVIA Administration Thiamine HCl 100 mg 03/30/19 22:00 03/30/19 22:17 Vitamin B1 - PO 100 mg HS LIVIA Administration ASSESSMENT/PLAN 68 year-old male with a PMH significant for HTN, hypothyroidism, alcohol abuse. Admitted for hyponatremia, acute alcohol withdrawal, elevated bilirubin. 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 Montaño who will try to facilitate transfer to hepatobiliary service for [facility] Elevated ammonia --start lactulose, titrate to 2-3 BMs per day Hypertension --stop home lisinopril; ACEI/ARB contraindicated in patients with cirrhosis and ascites --BP is stable, continue nadolol Hypothyroidism --verified home dose, continue --TSH ordered Psoriasis --stable Gout --stable, last flare 3-4 months ago; takes colchicine PRN FEN Fluids: PO intake adequate Electrolytes: replete as indicated; K>4, Mg>2 Nutrition: low sodium DVT prophylaxis: defer chemical prophylaxis due to possible surgical intervention; SCDs Dispo: continues to require inpatient care. Visit type - Emergency Visit Emergency Visit: Yes ED Registration Date: 03/29/19 Care time: The patient presented to the Emergency Department on the above date and was hospitalized for further evaluation of their emergent condition. - New Patient This patient is new to me today: No - Critical Care Critical Care patient: No
[2019-03-31] MEDS ORDERED: PT OWN MED DRAWER 7, Y5N ONE (09:04)
[2019-03-31 09:25] LABS: PLATELET ESTIMATE MOD DECREASED
[2019-03-31 09:26] LABS: ADD RBC MORPHOLOGY YES
[2019-03-31] MEDS: NADOLOL 20 MG TABLET (FP) PO SCH (09:43)
[2019-03-31] MEDS: PANTOPRAZOLE 40 MG TABLET (FP) PO SCH (09:43)
[2019-03-31] MEDS: PRENATAL VITAMINS W/ FOLIC ACID TABLET (FP) PO SCH (09:44)
[2019-03-31] MEDS ORDERED: LACTULOSE 20 GM/30 ML UDC (FOR ORAL USE ONLY) PO PRN (13:44)
[2019-03-31 14:00] LABS: ACTIVATED PTT 35.2 SECONDS (25.2-36.5)
[2019-03-31 14:05] LABS: INR 2.32 (0.82-1.09); PROTHROMBIN TIME (PATIENT) 25.5 SEC (10.2-13.0)
[2019-03-31 15:58] VITALS: BP 122/50; PULSE 59; TEMP 98.2
--- NOTE | 2019-03-31 16:34 | DS ---
Physical Exam: SUBJECTIVE: Patient seen and examined OBJECTIVE: Vital Signs Period Temp Pulse Resp BP Sys/Scott Pulse Ox Last 24 Hr 97.6 F-98.5 F 56-71 18-18 114-135/50-56 94-99 PHYSICAL EXAM GENERAL: The patient is awake, alert, and oriented. Sleepy, eyes close when not speaking, easily arousable. HEENT: icteric sclera, jaundice under tongue LUNGS: Breath sounds equal, clear to auscultation HEART: Regular rate and rhythm, S1, S2 ABDOMEN: Protuberant, tympanic, not tender EXTREMITIES: 2+ pulses, warm, well-perfused, no edema. NEUROLOGICAL: Cranial nerves II through XII grossly intact. Normal speech, gait not observed. No tremors, no asterixis PSYCH: Normal mood, normal affect. SKIN: Warm, dry, jaundiced LABS Laboratory Results - last 24 hr 03/31/19 03/31/19 03/31/19 07:12 07:12 13:37 WBC 6.1 RBC 3.05 L Hgb 12.0 Hct 33.7 L MCV 110.3 H MCH 39.2 H MCHC 35.6 RDW 14.5 Plt Count 68 L MPV 10.0 Absolute Neuts (auto) 3.3 Neutrophils % 52.9 Lymphocytes % 30.4 Monocytes % 10.6 H Eosinophils % 5.8 H Basophils % 0.3 Platelet Estimate Mod decreased PT with INR 25.5 H INR 2.32 H PTT (Actin FS) 35.2 Sodium 131 L Potassium 4.1 Chloride 103 Carbon Dioxide 22 Anion Gap 6 L BUN 11.0 Creatinine 0.7 Est GFR (CKD-EPI)AfAm 112.38 Est GFR (CKD-EPI)NonAf 96.97 Random Glucose 98 Calcium 8.0 L Magnesium 1.7 L Total Bilirubin 7.6 H AST 83 H ALT 26 Alkaline Phosphatase 221 H Total Protein 6.3 L Albumin 2.2 L HOSPITAL COURSE: Date of Admission:03/29/19 Date of Discharge: 03/31/19 Pre hospital course 68 year-old male with a PMH significant for HTN, hypothyroidism, alcohol abuse for many years, psoriasis, and gout. Patient presented to the [facility] on 03/28/19 with complaints of generalized weakness, excessive thirst, frequent urination, and poor appetite x 1 week. Patient was found to be hyponatremic and with elevated bilirubin. He was treated with IV fluids, electrolytes were repleted, but he signed out AMA before the workup was complete. Patient returned today at the urging of his PCP Dr. Montaño. He was again found to be hyponatremic, with elevated bilirubin, and elevated transaminases. ER course (1) Total bili 7.6, Direct bili 4.1 (2) AST/ALT/Alk phos 105/30/250 (3) INR 1.97 (4) NS x 1 L Subsequent hospital course 68 year-old male with a PMH significant for HTN, hypothyroidism, alcohol abuse. Admitted for hyponatremia, acute alcohol withdrawal, elevated bilirubin. Alcohol Dependency Acute alcohol withdrawal --mildly anxious, irritable on admission, more somnolent today --ativan protocol discontinued due to somnolence --multivitamin bag given, continued on daily thiamine, folic acid --continuous cardiac monitoring, no events Hyponatremia --Na 129 on admission, mildly improved 131 Hepatic cirrhosis Portal hypertension Hyperbilirubinemia Elevated transaminases Ascites Varices --03/30 MRCP: (1) cirrhotic liver with splenomegaly; (2) extensive difuse mesenteric edema, trace perihepatic and perisplenic ascites and trace bilateral pleural effusions; thickened and edematous duodenum, periportal edema; extensive varicosities and collateral vessels in right abdomen; 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 Montaño who will try to facilitate transfer to hepatobiliary service for [facility] --accepted by Dr. Roe, [facility] Elevated ammonia --lactulose started Hypertension --stopped home lisinopril; ACEI/ARB contraindicated in patients with cirrhosis and ascites --started nadolol 40mg daily, BP stable Hypothyroidism --continued home dose levothyroxine 100mcg Psoriasis --stable Gout --stable, last flare 3-4 months ago; takes colchicine PRN DVT prophylaxis: SCDs; held chemical prophylaxis for possible surgical intervention Minutes to complete discharge: 35 Discharge Summary Reason For Visit: LOW NA Current Active Problems Elevated bilirubin (Acute) Hyponatremia (Acute) Painless jaundice (Acute) Condition: Stable - Instructions Disposition: TRANSFER ACUTE CARE/OTHER HOSP - Home Medications Comprehensive Discharge Medication List: Ambulatory Orders Lactulose (Oral Use) [Cephulac -] 20 gm PO TID udc 03/31/19 Levothyroxine [Synthroid -] 100 mcg PO DAILY@0700 #30 tablet 03/31/19 Nadolol [Corgard -] 40 mg PO DAILY tablet 03/31/19 Pantoprazole Sodium [Protonix -] 40 mg PO BID tablet.ec 03/31/19 Vitamins (Sjr) - 1 tab PO DAILY tablet 03/31/19 Thiamine HCl [Vitamin B1 -] 100 mg PO HS tablet 03/31/19 This patient is new to me today: No Emergency Visit: Yes ED Registration Date: 03/29/19 Care time: The patient presented to the Emergency Department on the above date and was hospitalized for further evaluation of their emergent condition. Critical Care patient: No - Discharge Referral Referred to [facility] No
--- NOTE | 2019-03-31 19:35 | PN ---
[facility] Progress Note (SOAP) Subjective: 68 y.o. 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 Pt denies blackouts , + tremors if not drinking , denies seizures , hospitalized for hyponatremia, plan to transfer to [facility] due to current medical condition . Family @ bedisde expresses interest in pt attending inpt rehab , pt declines , states he is planning to return to work upon d/c . PMH HTN, HLD, ETOH abuse, hypothyroidism Active Medications Eucalyptus/Menthol/Phenol/Sorbitol (Cepastat Lozenge -) 1 each MM Q4H PRN PRN Reason: SORE THROAT Stop: 04/04/19 19:27 Last Admin: 03/30/19 09:49 Dose: 1 each Lactulose (Cephulac (Oral Use)) 20 gm PO TID [facility] Levothyroxine Sodium (Synthroid -) 100 mcg PO DAILY@0700 [facility] Last Admin: 03/31/19 06:31 Dose: 100 mcg Nadolol (Corgard -) 40 mg PO DAILY [facility] Last Admin: 03/31/19 09:43 Dose: 40 mg Ondansetron HCl (Zofran Odt -) 4 mg SL Q12H PRN PRN Reason: Nausea/Vomiting Stop: 04/04/19 19:29 Pantoprazole Sodium (Protonix -) 40 mg PO BID [facility] Last Admin: 03/31/19 09:43 Dose: 40 mg Multivit/Folic Acid/Iron ( Vitamins (Sjr) -) 1 tab PO DAILY [facility] Last Admin: 03/31/19 09:44 Dose: 1 tab Thiamine HCl (Vitamin B1 -) 100 mg PO HS [facility] Last Admin: 03/30/19 22:17 Dose: 100 mg Objective: wnwd , drowsy / lethargic , awakened by verbal stimuli , able to answer questions appropriately , AAO x 3 , generalized icterus , + UE tremors. CBC, BMP 03/31/19 07:12 03/31/19 07:12 Abnormal Lab Results 03/31/19 03/31/19 03/31/19 07:12 07:12 13:37 RBC 3.05 L Hct 33.7 L MCV 110.3 H MCH 39.2 H Plt Count 68 L Monocytes % 10.6 H Eosinophils % 5.8 H PT with INR 25.5 H INR 2.32 H Sodium 131 L Anion Gap 6 L Calcium 8.0 L Magnesium 1.7 L Total Bilirubin 7.6 H AST 83 H Alkaline Phosphatase 221 H Total Protein 6.3 L Albumin 2.2 L 03/31/19 19:33 Vital Signs - 24 hr 03/30/19 03/30/19 03/31/19 21:00 22:00 02:00 Temperature 97.7 F 98.2 F Pulse Rate 71 68 Respiratory 18 18 18 Rate Blood Pressure 127/54 L 118/56 L O2 Sat by Pulse 98 97 Oximetry (%) 03/31/19 03/31/19 03/31/19 06:00 09:00 13:46 Temperature 98.5 F 97.7 F Pulse Rate 62 56 L Respiratory 18 18 18 Rate Blood Pressure 114/53 L 117/52 L O2 Sat by Pulse 94 L 94 L 99 Oximetry (%) 03/31/19 15:57 Temperature 98.2 F Pulse Rate 59 L Respiratory 18 Rate Blood Pressure 122/50 L O2 Sat by Pulse 97 Oximetry (%) Assessment: ALcohol dependence 03/31/19 19:33 Plan: pt completed Ativan course , being transferred to another facility for further medical care . d/w pt and family . Pt not interested in inpt rehab , discussed outpt per pt preference .
[2019-03-31] MEDS ORDERED: LACTULOSE 20 GM/30 ML UDC (FOR ORAL USE ONLY) PO SCH (22:00)
[2019-04-01] MEDS ORDERED: LORazepam 0.5 MG TABLET PO PRN
[2019-04-01] MEDS ORDERED: LORazepam 0.5 MG TABLET PO SCH (05:00)
[2019-04-02] MEDS ORDERED: LORazepam 0.5 MG TABLET PO ONE (05:00)
== END 2019-03-31 19:08 | disposition short-term general hospital (02) | DRG 641 ==
LOC: FER 14:11 → FM/S 16:53
PROVIDERS: ADMIT Internal Medicine; ATTEND Nurse Practitioner Acute Care
DX: E87.1 Hypo-osmolality and hyponatremia (principal); F10.230 Alcohol dependence with withdrawal, uncomplicated; K76.6 Portal hypertension; I10 Essential (primary) hypertension; E78.5 Hyperlipidemia, unspecified; E03.9 Hypothyroidism, unspecified; M10.9 Gout, unspecified; K70.31 Alcoholic cirrhosis of liver with ascites; I86.8 Varicose veins of other specified sites; L40.9 Psoriasis, unspecified; Y90.0 Blood alcohol level of less than 20 mg/100 ml
CPT/HCPCS: 36415; 71045-TC-FY; 74182-TC; 76705-TC; 80048; 80053; 80076; 80307; 82140; 82248; 83036; 83690; 83735; 83930; 84100; 84443; 85025; 85610; 85730; 86850; 86900; 86901; 93005; 99283-25; A9579; J7030

== ENCOUNTER 2021-11-14 11:43 | Emergency (ER) | payer OTHER, MEDICARE ==
[2021-11-14 12:28] VITALS: BMI 30.1
[2021-11-14 13:31] LABS: HEMOGLOBIN 9.7 G/dL (11.7-16.9); MCH 34.8 pg (25.7-33.7); MCHC 35.9 g/dl (32.0-35.9); MEAN CELL VOLUME 97.3 fl (80-96); MEAN PLT VOLUME 8.5 fl (7.5-11.1); PLATELET COUNT 95.5 10^3/uL (134-434); RBC 2.78 10^6/uL (4.00-5.60); RDW 15.5 % (11.9-15.9); WHITE BLOOD COUNT 5.3 10^3/uL (4.0-10.8)
[2021-11-14 13:34] LABS: INR 1.35 (0.83-1.09); PROTHROMBIN TIME (PATIENT) 15.6 SEC (9.7-13.0)
[2021-11-14 13:37] LABS: ACTIVATED PTT 35.9 SECONDS (25.2-36.5)
[2021-11-14 13:40] LABS: BILIRUBIN,TOTAL 1.3 mg/dl (0.2-1); CALCIUM 8.6 mg/dl (8.5-10); CREATININE 0.9 mg/dl (0.55-1.3); TOT PROT 6.2 g/dl (6.4-8.2)
[2021-11-14 14:08] LABS: ANISOCYTOSIS 1+; PLATELET ESTIMATE DECREASED
[2021-11-14 17:02] VITALS: BP 130/56; PULSE 66; TEMP 98.3
== END 2021-11-14 19:27 | disposition short-term general hospital (02) ==
LOC: FER 11:43
DX: K74.60 Unspecified cirrhosis of liver (principal); D64.9 Anemia, unspecified; K72.90 Hepatic failure, unspecified without coma; E87.1 Hypo-osmolality and hyponatremia; R77.0 Abnormality of albumin
CPT/HCPCS: 36415; 71046-TC-FY; 80053; 81003; 82140; 82962; 85025; 85610; 85730; 86850; 86900; 86901; 87086; 93005; 99285-25; C9803-CS; U0003; U0005

== ENCOUNTER 2023-01-29 12:45 | Emergency (ER) | payer OTHER, MEDICARE ==
[2023-01-29 13:08] VITALS: BP 120/86; PULSE 62; RESP 18; TEMP 97.8; BMI 30.9
[2023-01-29 13:42] LABS: ALBUMIN 3.7 g/dl (3.4-5.0); BILIRUBIN,TOTAL 1.3 mg/dl (0.2-1); BLOOD UREA NITROGEN 21.3 mg/dl (7-18); CALCIUM 8.6 mg/dl (8.5-10.1); CREATININE 1.3 mg/dl (0.6-1.3); POTASSIUM 4.5 mmol/L (3.5-5.1); SGOT/AST 23.8 U/L (15-37); SGPT/ALT 16.7 U/L (7-52)
== END 2023-01-29 14:05 | disposition home or self-care (01) ==
LOC: FER 12:45
DX: R25.2 Cramp and spasm (principal)
CPT/HCPCS: 36415; 80053; 99283-25